=== PATIENT | male | born 1940 | race Caucasian/White ===

== ENCOUNTER 2021-05-19 04:35 | Day surgery (SDC) | payer OTHER, BC ==
[2021-05-14 12:53] VITALS: BMI 26.9
[2021-05-19 09:48] VITALS: TEMP 97.9
[2021-05-19 10:27] VITALS: BP 120/78; PULSE 60
== END 2021-05-19 10:45 | disposition home or self-care (01) ==
LOC: JASU-ENDO 04:35
PROVIDERS: ATTEND Internal Medicine Gastroenterology
PROC: 0DBC8ZX Excision of Ileocecal Valve, Via Natural or Artificial Opening Endoscopic, Diagnostic (ICD-10-PCS; 2021-05-19)
PROC: 0DB98ZX Excision of Duodenum, Via Natural or Artificial Opening Endoscopic, Diagnostic (ICD-10-PCS; 2021-05-19)
PROC: 0DB78ZX Excision of Stomach, Pylorus, Via Natural or Artificial Opening Endoscopic, Diagnostic (ICD-10-PCS; 2021-05-19)
PROC: 0DBL8ZX Excision of Transverse Colon, Via Natural or Artificial Opening Endoscopic, Diagnostic (ICD-10-PCS; principal; 2021-05-19 09:00)
DX: Z12.11 Encounter for screening for malignant neoplasm of colon (principal); D12.0 Benign neoplasm of cecum; D12.3 Benign neoplasm of transverse colon; K64.8 Other hemorrhoids; K57.30 Diverticulosis of large intestine without perforation or abscess without bleeding; N40.0 Benign prostatic hyperplasia without lower urinary tract symptoms; K29.70 Gastritis, unspecified, without bleeding; K29.40 Chronic atrophic gastritis without bleeding; Z86.010 Personal history of colon polyps; Z80.0 Family history of malignant neoplasm of digestive organs; R10.13 Epigastric pain
CPT/HCPCS: 82962

== ENCOUNTER 2025-01-20 06:15 | Day surgery (SDC) | payer OTHER, BC ==
[2025-01-07 16:12] VITALS: BMI 26.2
[2025-01-20 08:28] VITALS: TEMP 16
[2025-01-20 08:40] VITALS: RESP 18
[2025-01-20 08:52] VITALS: PULSE 70
[2025-01-20 09:36] VITALS: BP 140/66
== END 2025-01-20 09:36 | disposition home or self-care (01) ==
LOC: JASU-ENDO 06:15
PROVIDERS: ATTEND Internal Medicine Gastroenterology
PROC: 0DJD8ZZ Inspection of Lower Intestinal Tract, Via Natural or Artificial Opening Endoscopic (ICD-10-PCS; principal; 2025-01-20 08:00)
DX: Z12.11 Encounter for screening for malignant neoplasm of colon (principal); K57.30 Diverticulosis of large intestine without perforation or abscess without bleeding; K64.8 Other hemorrhoids; Z86.0100 Personal history of colon polyps, unspecified; Z80.0 Family history of malignant neoplasm of digestive organs
CPT/HCPCS: 82962